=== PATIENT | female | born 1990 | race African-American/Black ===

== ENCOUNTER 2020-01-31 18:46 | Emergency (ER) | payer MEDICAID ==
[~2020-01-31] VITALS: Ht 165.1 cm; Wt 107.0 kg
--- NOTE | 2020-01-31 19:09 | PHYS DOC ---
Past Medical History Past Medical History: Migraines Drug Use: None General Adult EDM: Chief Complaint: HEADACHE HPI: HPI: Patient is a 29 year old female who presents with a chief complaint of a headache. Patient had a headache for the 3 days is progressively getting worse with the last 24 hours. Patient states he feels like her prior migraines. Patient describes a gradual onset of right-sided throbbing headache that is currently 10 out of 10 in nature. Patient had some intermittent blurry vision as well as photophobia and nausea. Patient denies any fever, chills, or known COVID-19 exposures Review of Systems: Review of Systems: Constitutional: Denies fever or chills. [] Eyes: Has had some blurry vision especially in the right eye HENT: Denies nasal congestion or sore throat. [] Respiratory: Denies cough or shortness of breath. [] Cardiovascular: Denies chest pain or edema. [] GI: Denies abdominal pain, but has had nausea : Denies dysuria. [] Musculoskeletal: Denies back pain or joint pain. [] Integument: Denies rash. [] Neurologic: Complains of headache but no focal weakness or numbness Endocrine: Denies polyuria or polydipsia. [] Lymphatic: Denies swollen glands. [] Psychiatric: Denies depression or anxiety. [] Heart Score: Risk Factors: Risk Factors: DM, Current or recent (<one month) smoker, HTN, HLP, family history of CAD, obesity. Risk Scores: Score 0 - 3: 2.5% MACE over next 6 weeks - Discharge Home Score 4 - 6: 20.3% MACE over next 6 weeks - Admit for Clinical Observation Score 7 - 10: 72.7% MACE over next 6 weeks - Early Invasive Strategies Current Medications: Current Medications Prochlorperazine Edisylate (Compazine) 10 mg 1X ONCE IV Last administered on 01/31/20at 19:24; Start 01/31/20 at 19:15; Stop 01/31/20 at 19:16; Status DC Diphenhydramine HCl (Benadryl) 50 mg 1X ONCE IVP Last administered on 01/31/20at 19:24; Start 01/31/20 at 19:15; Stop 01/31/20 at 19:16; Status DC Ketorolac Tromethamine (Toradol 15mg Vial) 15 mg 1X ONCE IVP Last administered on 01/31/20at 19:24; Start 01/31/20 at 19:15; Stop 01/31/20 at 19:16; Status DC Dexamethasone Sodium Phosphate (Decadron) 4 mg 1X ONCE IVP ; Start 01/31/20 at 20:00; Stop 01/31/20 at 20:01; Status UNV Physical Exam: PE: Constitutional: Well developed, well nourished, no acute distress, non-toxic appearance. [] HENT: Normocephalic, atraumatic, bilateral external ears normal, no trismus nose normal. [] Eyes: PERRLA, EOMI, conjunctiva normal, no discharge. [] Neck: Normal range of motion, no tenderness, supple, no stridor. [] Cardiovascular:Heart rate regular rhythm, peripheral pulses are intact cap refill is brisk Lungs & Thorax: Bilateral breath sounds clear, no respiratory distress Abdomen: Bowel sounds normal, soft, no tenderness, no masses, no pulsatile masses. [] Skin: Warm, dry, no erythema, no rash. [] Back: No tenderness, no CVA tenderness. [] Extremities: No tenderness, no cyanosis, no clubbing, ROM intact, no edema. [] Neurologic: Alert and oriented X 3, normal motor function, normal sensory function, no focal deficits noted. [] Psychologic: Affect normal, judgement normal, mood normal. [] Current Patient Data: Labs: Current Medications Medications (Trade) Dose Ordered Sig/Sugar Route PRN Reason Start Time Stop Time Status Last Admin Dose Admin Prochlorperazine Edisylate (Compazine) 10 mg 1X ONCE IV 01/31/20 19:15 01/31/20 19:16 DC 01/31/20 19:24 Diphenhydramine HCl (Benadryl) 50 mg 1X ONCE IVP 01/31/20 19:15 01/31/20 19:16 DC 01/31/20 19:24 Ketorolac Tromethamine (Toradol 15mg Vial) 15 mg 1X ONCE IVP 01/31/20 19:15 01/31/20 19:16 DC 01/31/20 19:24 Dexamethasone Sodium Phosphate (Decadron) 4 mg 1X ONCE IVP 01/31/20 20:00 01/31/20 20:01 UNV Current Medications Medications (Trade) Dose Ordered Sig/Sugar Route PRN Reason Start Time Stop Time Status Last Admin Dose Admin Prochlorperazine Edisylate (Compazine) 10 mg 1X ONCE IV 01/31/20 19:15 01/31/20 19:16 DC 01/31/20 19:24 Diphenhydramine HCl (Benadryl) 50 mg 1X ONCE IVP 01/31/20 19:15 01/31/20 19:16 DC 01/31/20 19:24 Ketorolac Tromethamine (Toradol 15mg Vial) 15 mg 1X ONCE IVP 01/31/20 19:15 01/31/20 19:16 DC 01/31/20 19:24 Dexamethasone Sodium Phosphate (Decadron) 4 mg 1X ONCE IVP 01/31/20 20:00 01/31/20 20:01 UNV Vital Signs: Vital Signs Date Time Temp Pulse Resp B/P (MAP) Pulse Ox O2 Delivery O2 Flow Rate FiO2 01/31/20 19:07 98.2 66 20 99 98.2 EKG: EKG: [] Radiology/Procedures: Radiology/Procedures: [] Course & Med Decision Making: Course & Med Decision Making Pertinent Labs and Imaging studies reviewed. (See chart for details) [] 29-year-old female presents with headache consistent with her migraines. I have a note from the nurse that her pain was 0 out of 10 and I ordered a dose of Decadron I went in to reassess her but patient had already left. Dragon Disclaimer: Dragsiri Disclaimer: This electronic medical record was generated, in whole or in part, using a voice recognition dictation system. Departure Departure Impression: Primary Impression: Headache Disposition: 01 DC HOME SELF CARE/HOMELESS (Left prior to discharge instructions) Condition: STABLE Referrals: NO PCP (PCP) CARLOS A MENJIVAR MD Jan 31, 2020 19:09
[2020-01-31] MEDS ORDERED: KETOROLAC 15 MG/ML VIAL. IVP ONE (19:15)
[2020-01-31] MEDS ORDERED: diphenhydrAMINE 50 MG/ML VIAL IVP ONE (19:15)
[2020-01-31] MEDS ORDERED: PROCHLORPERAZINE 10 MG/2 ML VIAL. IV ONE (19:15)
[2020-01-31 19:30] VITALS: BP 130/60
[2020-01-31] MEDS ORDERED: DEXAMETHASONE SOD PHOS 4 MG/ML VIAL IVP ONE (20:00)
== END 2020-01-31 20:14 | disposition left against medical advice (07) ==
LOC: ER 18:46
DX: G43.909 Migraine, unspecified, not intractable, without status migrainosus (principal)
CPT/HCPCS: 96374; 96375; 99284; J0780; J1200; J1885